=== PATIENT | female | born 1970 | race Caucasian/White ===

== ENCOUNTER 2018-11-14 07:02 | Emergency (ER) | payer BC, OTHER ==
[2018-11-14 07:16] VITALS: BP 157/94
--- NOTE | 2018-11-14 07:19 | UC ---
Abdominal Pain Female HPI - HPI Summary HPI Summary: Patient presents to urgent care reporting 4 days of progressive dysuria, urgency , and this morning hematuria. Patient states she's got a dull ache in her back. No nausea vomiting. No vaginal discharge, odor, itch. Patient states she is not she has an IUD. Patient states she's been a history of UTIs but the last one was several years ago and this feels the same. Patient has not taken anything Motrin or Tylenol but has taken Azo yesterday with some mild relief. No fever, chills, rash. No is up-to-date. Family history significant for mom with a history of bladder cancer. Patient states she is due for her menses. Patient's medications reviewed this visit - History of Current Complaint Chief Complaint: UCGU Stated Complaint: URINARY ISSUE Hx Obtained From: Patient Hx Last Menstrual Period: 10/24/18 Onset/Duration: Gradual Onset Severity Initially: Mild Severity Currently: Moderate Pain Intensity: 7 Allergies/Adverse Reactions: Allergies Allergy/AdvReac Type Severity Reaction Status Date / Time No Known Allergies Allergy Verified 11/14/18 07:17 PMH/Surg Hx/FS Hx/Imm Hx Previously Healthy: Yes - Surgical History Surgical History: None Surgery Procedure, Year, and Place: pilonidal cyst; tonsils and adenoids; ear tubes x 2 - Family History Known Family History: Positive: Other - mom with bladder CA - Social History Occupation: Employed Full-time - [employer] Lives: With Family Alcohol Use: None Substance Use Type: None Smoking Status (MU): Heavy Every Day Tobacco Smoker Amount Used/How Often: 1/2 ppd - Immunization History Most Recent Influenza Vaccination: 2014 Review of Systems All Other Systems Reviewed And Are Negative: Yes Constitutional: Positive: Negative Skin: Positive: Negative Gastrointestinal: Positive: Negative Genitourinary: Positive: Dysuria, Hematuria, Frequency, Urgency. Negative: Vaginal/Penile Burning, Vaginal/Penile Itching, Vaginal/Penile Discharge, Vaginal/Penile Pain Physical Exam - Summary Physical Exam Summary: Vital Signs Reviewed: Yes A+Ox3, no distress Eyes: Conjunctiva Clear, VAIBHAV. EOM intact and full ENT: Hearing grossly normal TM x 2 clear, mmoist, uvula midline, no exudate, no erythema Neck: Positive: Supple Respiratory: Positive: No respiratory distress, No accessory muscle use + CTA throughout no w/r Cardiovascular: RRR nl s1, s2 no m/r CBT <2 sec abd soft + BS mild suprapubic pain, nd, no guarding, no distension, no CVA Musculoskeletal Exam: TROY x 4 without difficulty Strength Intact, ROM Intact Neurological: Positive: Alert, + sensation throughout Psychological: Positive: Normal Response To Family Skin: Positive: no rash, no ecchymosis Triage Information Reviewed: Yes Vital Signs: Initial Vital Signs Temp 98.1 F 11/14/18 07:11 Pulse 80 11/14/18 07:11 Resp 18 11/14/18 07:11 BP 157/94 11/14/18 07:11 Pulse Ox 100 11/14/18 07:11 Abd Pain Female Course/Dx - Course Course Of Treatment: pt with progressive dysuria, hemtauria, and frequency x 4 days. Pt with hematuria since yesterday. No fevers,chills. Pt took azo yesterday with relief. No analgesia today. Urine with + blood, + LE. d/w pt. will culture. macrobid. pyridium. recommend recheck after urine clear. if continue hematuria recommend urology given mom h/o bladder ca. pt in agreement with plan. BP elevated. Recommend PCP recheck - Differential Dx/Diagnosis Provider Diagnosis: Dysuria Discharge - Sign-Out/Discharge Documenting (check all that apply): Patient Departure All imaging exams completed and their final reports reviewed: No Studies - Discharge Plan Condition: Stable Disposition: HOME Prescriptions: Nitrofurantoin Monohyd/M-Cryst [Macrobid 100 mg Capsule] 100 mg PO BID #14 cap Phenazopyridine TAB* [Pyridium 100 mg TAB*] 100 mg PO TID PRN #9 tab PRN Reason: burning with urination Patient Education Materials: Urinary Tract Infection in Women (ED) Referrals: No Primary Care Phys,NOPCP [Primary Care Provider] - Additional Instructions: - Stay well hydrated - drink plenty of non-alcoholic, non caffinated beverages - your urine will be further tested - if you require any changes to your treatment, we will contact you - this usually take 2 days - Contact your primary doctor to arrange a follow-up appointment next week. Contact your doctor or return with questions or concerns - Take your antibiotics exactly as prescribed until gone - Take pyridium as prescribed for discomfort. This will make your urine blaze orange - this is normal - Okay to alternate ibuprofen (Advil, Motrin) and Tylenol every 3 hours for pain. Take with food - Call your doctor or return with questions or concerns. If you develop uncontrolled pain, vomiting, fevers or other concerns go to the emergency department for further evaluation - Billing Disposition and Condition Condition: STABLE Disposition: Home
--- NOTE | 2018-11-15 15:37 | UC ---
- Progress Note Progress Note: Please notify pt NO UTI Stop antibiotic She should see a urologist to determine the cause of her hematuria Please give her Ramon Linares/Erin's number Course/Dx - Diagnoses Provider Diagnoses: Dysuria Discharge - Sign-Out/Discharge Documenting (check all that apply): Post-Discharge Follow Up All imaging exams completed and their final reports reviewed: No Studies - Discharge Plan Condition: Stable Disposition: HOME Prescriptions: Nitrofurantoin Monohyd/M-Cryst [Macrobid 100 mg Capsule] 100 mg PO BID #14 cap Phenazopyridine TAB* [Pyridium 100 mg TAB*] 100 mg PO TID PRN #9 tab PRN Reason: burning with urination Patient Education Materials: Urinary Tract Infection in Women (ED) Referrals: No Primary Care Phys,NOPCP [Primary Care Provider] - Additional Instructions: - Stay well hydrated - drink plenty of non-alcoholic, non caffinated beverages - your urine will be further tested - if you require any changes to your treatment, we will contact you - this usually take 2 days - Contact your primary doctor to arrange a follow-up appointment next week. Contact your doctor or return with questions or concerns - Take your antibiotics exactly as prescribed until gone - Take pyridium as prescribed for discomfort. This will make your urine blaze orange - this is normal - Okay to alternate ibuprofen (Advil, Motrin) and Tylenol every 3 hours for pain. Take with food - Call your doctor or return with questions or concerns. If you develop uncontrolled pain, vomiting, fevers or other concerns go to the emergency department for further evaluation - Billing Disposition and Condition Condition: STABLE Disposition: Home
== END 2018-11-14 07:30 | disposition home or self-care (01) ==
LOC: UCEAST 07:02
DX: R30.0 Dysuria (principal); R31.9 Hematuria, unspecified; Z87.440 Personal history of urinary (tract) infections; F17.200 Nicotine dependence, unspecified, uncomplicated
CPT/HCPCS: 81003; 87086; 99212; G0463